=== PATIENT | female | born 1990 | race Caucasian/White ===

== ENCOUNTER 2018-02-17 19:40 | Emergency (ER) | payer OTHER ==
[2018-02-17 19:40] VITALS: BMI 29.8
[2018-02-17 19:56] VITALS: BP 114/70; PULSE 81; TEMP 98.1; O2SAT 100
--- NOTE | 2018-02-17 21:27 | C.PDOC ---
History Of Present Illness 27 y/o female comes in complaining of cough, body aches, congestion, and subjective fever for the past 9 days. States that for the last 4 days, patient has had a sore throat and left ear pain. Denies any SOB, chest pain, vomiting, or diarrhea. Time Seen by Provider: 02/17/18 20:33 Chief Complaint (Nursing): Cough, Cold, Congestion History Per: Patient History/Exam Limitations: no limitations Onset/Duration Of Symptoms: Days Current Symptoms Are (Timing): Still Present Past Medical History Reviewed: Historical Data, Nursing Documentation, Vital Signs Vital Signs: Last Vital Signs Temp 98.1 F 02/17/18 19:54 Pulse 81 02/17/18 19:54 Resp 18 02/17/18 19:54 BP 114/70 02/17/18 19:54 Pulse Ox 100 02/17/18 19:54 - [facility] Procedures DELIVERY OF PRODUCTS OF CONCEPTION, EXTERNAL APPROACH (06/28/15) Family History: States: No Known Family Hx - Social History Hx Tobacco Use: No Hx Alcohol Use: No Hx Substance Use: No - Immunization History Hx Tetanus Toxoid Vaccination: No Hx Influenza Vaccination: No Hx Pneumococcal Vaccination: No Review Of Systems Except As Marked, All Systems Reviewed And Found Negative. Constitutional: Positive for: Fever (subjective), Other (body aches) ENT: Positive for: Ear Pain (L), Nose Congestion, Throat Pain Cardiovascular: Negative for: Chest Pain Respiratory: Positive for: Cough. Negative for: Shortness of Breath Gastrointestinal: Negative for: Vomiting, Diarrhea Skin: Negative for: Rash Physical Exam - Physical Exam Appears: Non-toxic, No Acute Distress Skin: Warm, Dry Head: Atraumatic, Normacephalic Eye(s): bilateral: Normal Inspection, PERRL, EOMI Ear(s): Bilateral: Normal Nose: Other (large turbinates, greater on left) Oral Mucosa: Moist Throat: Erythema (tonsillar erythema), No Exudate Neck: Supple Lymphatic: Other Cardiovascular: Rhythm Regular, No Murmur Respiratory: Normal Breath Sounds, No Rales, No Rhonchi, No Wheezing Gastrointestinal/Abdominal: Soft, No Tenderness Extremity: Bilateral: Atraumatic, Normal ROM Neurological/Psych: Oriented x3, Normal Speech ED Course And Treatment O2 Sat by Pulse Oximetry: 100 (RA) Pulse Ox Interpretation: Normal Disposition Counseled Patient/Family Regarding: Diagnosis, Need For Followup, Rx Given - Disposition Referrals: [facility] [Outside] Disposition: HOME/ ROUTINE Disposition Time: 21:24 Condition: STABLE Additional Instructions: Please follow up with PMD Increase PO fluids Take medications as directed Return to ER if worse Prescriptions: Amoxicillin 500 mg PO TID #21 tab Ibuprofen [Motrin] 600 mg PO Q6H #30 tab Mometasone Furoate [Nasonex] 2 spray NS DAILY #1 bottle Instructions: Sore Throat, Adult (DC), Upper Respiratory Infection (ED) Forms: [employer] (Indian) - Clinical Impression Clinical Impression: Pharyngitis, Upper respiratory infection - PA / ASSOCIATE PROFESSOR OF SURGERY / Resident Statement MD/DO has reviewed & agrees with the documentation as recorded. - Scribe Statement The provider has reviewed the documentation as recorded by the Scribfozia Llamas All medical record entries made by the Mattibfozia were at my direction and personally dictated by me. I have reviewed the chart and agree that the record accurately reflects my personal performance of the history, physical exam, medical decision making, and the department course for this patient. I have also personally directed, reviewed, and agree with the discharge instructions and disposition.
[2018-02-17 22:13] VITALS: RESP 20
== END 2018-02-17 21:45 | disposition home or self-care (01) ==
LOC: C.ER 19:40
DX: J02.9 Acute pharyngitis, unspecified (principal)